=== PATIENT | male | born 1995 | race American Indian/Alaskan Native ===

== ENCOUNTER 2017-02-18 14:23 | Emergency (ER) | payer SELFPAY ==
[2017-02-18 14:35] VITALS: BP 132/79
[2017-02-18] MEDS ORDERED: NACL 0.9% 500 ML IR ONE (15:36)
[2017-02-18] MEDS ORDERED: BOOSTRIX IM ONE (15:53)
[2017-02-18] MEDS ORDERED: XYLOCAINE 2% INFILTRATI ONE (15:54)
--- NOTE | 2017-02-18 15:59 | Emergency Department Report ---
- General Chief Complaint: Wound/Laceration Stated Complaint: LAC BACK RIGHT THIGH Time Seen by Provider: 02/18/17 15:51 Source: patient Mode of arrival: Ambulatory Limitations: No Limitations - History of Present Illness Initial Comments: right thigh laceration x 3 3 cm each versus banding saw blade, minimal bleeding pain , pt remains ambulatory , no numbness no tingling rom intact non restricted. 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 denies: loss of feeling/numbness, suspect foreign body present, unable to move injured part, weakness followed by dizziness, nausea/vomiting, fever - Related Data Previous Rx's Medication Instructions Recorded Last Taken Type Cephalexin [Keflex] 500 mg PO TID #30 capsule 02/18/17 Unknown Rx traMADol [Ultram 50 MG tab] 50 mg PO Q6HR PRN #20 tablet 02/18/17 Unknown Rx Allergies Allergy/AdvReac Type Severity Reaction Status Date / Time No Known Allergies Allergy Verified 02/18/17 15:43 ED Review of Systems ROS: Stated complaint: LAC BACK RIGHT THIGH Other details as noted in HPI Constitutional: denies: chills, fever Eyes: denies: eye pain, eye discharge, vision change ENT: denies: ear pain, throat pain Respiratory: denies: cough, shortness of breath, wheezing Cardiovascular: denies: chest pain, palpitations Endocrine: no symptoms reported Gastrointestinal: denies: abdominal pain, nausea, diarrhea Genitourinary: denies: urgency, dysuria Musculoskeletal: denies: back pain, joint swelling, arthralgia Skin: other (lacerations right post thigh ) Neurological: denies: headache, weakness, paresthesias Psychiatric: denies: anxiety, depression Hematological/Lymphatic: denies: easy bleeding, easy bruising ED Past Medical Hx - Past Medical History Previous Medical History?: No - Surgical History Past Surgical History?: No - Social History Smoking Status: Never Smoker Substance Use Type: None - Medications Home Medications: Home Medications Medication Instructions Recorded Confirmed Last Taken Type Cephalexin [Keflex] 500 mg PO TID #30 capsule 02/18/17 Unknown Rx traMADol [Ultram 50 MG tab] 50 mg PO Q6HR PRN #20 tablet 02/18/17 Unknown Rx ED Physical Exam - General Limitations: No Limitations General appearance: alert, in no apparent distress - Head Head exam: Present: atraumatic, normocephalic - Eye Eye exam: Present: normal appearance - ENT ENT exam: Present: mucous membranes moist - Neck Neck exam: Present: normal inspection - Respiratory Respiratory exam: Present: normal lung sounds bilaterally. Absent: respiratory distress - Cardiovascular Cardiovascular Exam: Present: regular rate, normal rhythm. Absent: systolic murmur, diastolic murmur, rubs, gallop - GI/Abdominal GI/Abdominal exam: Present: soft, normal bowel sounds - Rectal Rectal exam: Present: deferred - Extremities Exam Extremities exam: Present: full ROM, tenderness, normal capillary refill. Absent: pedal edema, joint swelling, calf tenderness - Expanded Lower Extremity Exam Right Hip exam: Present: full ROM Upper Leg exam: Present: full ROM, tenderness, laceration (right posterior thigh x 3 ). Absent: swelling, abrasion, ecchymosis, deformity, crepidus, dislocation, erythema Knee exam: Absent: normal inspection, full ROM Lower Leg exam: Absent: normal inspection, full ROM Ankle exam: Absent: normal inspection, full ROM Foot/Toe exam: Absent: normal inspection, full ROM Neuro vascular tendon exam: Present: no vascular compromise. Absent: pulse deficit, abnormal cap refill, motor deficit, sensory deficit, tendon deficit, extremity cold to touch, pallor, abnormal 2-point discrimination, decreased fine /light touch, foot drop, peroneal nerve deficit, significant pain with passive ROM of distal joint Gait: Positive: observed and normal - Back Exam Back exam: Present: normal inspection, full ROM. Absent: CVA tenderness (R), CVA tenderness (L), muscle spasm, paraspinal tenderness, vertebral tenderness - Neurological Exam Neurological exam: Present: alert, oriented X3, CN II-XII intact, normal gait, reflexes normal - Expanded Neurological Exam Expanded Patient oriented to: Present: person, place, time Speech: Present: fluid speech Cranial nerves: EOM's Intact: Normal, Gag Reflex: Normal, Facial Sensation: Normal Cerebellar function: Finger to Nose: Normal, Heel to Bailey: Normal, Romberg: Normal Upper motor neuron: Cyril Neglect: Normal, Pronator Drift: Normal, Babinski Sign : Normal, Sensory Extinction: Normal Sensory exam: Upper Extremity Light Touch: Normal, Upper Extremity Pin Prick: Normal, Upper Extremity Temperature: Normal, UE 2 Point Discrimination: Normal, Lower Extremity Light Touch: Normal, Lower Extremity Pin Prick: Normal, Lower Extremity Temperature: Normal, LE 2 Point Discrimination: Normal Motor strength exam: RUE: 5, LUE: 5, RLE: 5, LLE: 5 DTR: bicep (R): 2+, bicep (L): 2+, tricep (R): 2+, tricep (L): 2+, knee (R): 2+ , knee (L): 2+, ankle (R): 2+, ankle (L): 2+ Best Eye Response ([place]): (4) open spontaneously Best Motor Response ([place]): (6) obeys commands Best Verbal Response ([place]): (5) oriented [place] Total: 15 - Psychiatric Psychiatric exam: Present: normal affect, normal mood ED Course Vital Signs 02/18/17 14:32 Temperature 98 F Pulse Rate 81 Respiratory 16 Rate Blood Pressure 132/79 O2 Sat by Pulse 100 Oximetry - Laceration /Wound Repair Right Posterior Thigh Wound Location: lower extremity Wound Length (cm): 3 (3 cm x 3) Wound's Depth, Shape: superficial, irregular Wound Explored: contaminated Irrigated w/ Saline (ccs): 750 Betadine Prep?: Yes Anesthesia: 1% Lidocaine Volume Anesthetic (ccs): 5 (total all 3 wounds) Wound Debrided: minimal (irrigated with ns) Suture Size/Type: 3:0, proline, nylon Number of Sutures: 20 (20 total ) Layer Closure?: No Sterile Dressing Applied?: Yes Progress: pt for laceration repair verbal consent obtained wound cleaned with betadine solution anesthesia with 1% lidocaine plain x 5 ml , includes all three wounds, wound irrigated with ns x 750 cc, wound close with 3.0 Nylon suture x 20 bleeding controlled,sterile dressing applied there is no bleeding at this time. pt tolerated procedure with minimal distress pt given wound care instructions pt verbalized understanding and agreement with same. 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 pt verbalized understand and agreement with same. Critical care attestation.: If time is entered above; I have spent that time in minutes in the direct care of this critically ill patient, excluding procedure time. ED Disposition Clinical Impression: Laceration of thigh, right Qualifiers: Encounter type: initial encounter Qualified Code(s): S71.111A - Laceration without foreign body, right thigh, initial encounter Disposition: DC-01 TO HOME OR SELFCARE Is pt being admited?: No Does the pt Need Aspirin: No Condition: Good Instructions: Suture Care (ED) Prescriptions: Cephalexin [Keflex] 500 mg PO TID #30 capsule traMADol [Ultram 50 MG tab] 50 mg PO Q6HR PRN #20 tablet PRN Reason: Pain Referrals: PRIMARY CARE, [Primary Care Provider] - 3-5 Days Forms: Work/School Release Form(ED) Time of Disposition: 17:17
[2017-02-18] MEDS ORDERED: ceFAZolin 2 GM in NACL 0.9% 100 ML IV ONE (16:30)
[2017-02-18] MEDS ORDERED: NACL 0.9% IR ONE (18:08)
== END 2017-02-18 17:27 | disposition home or self-care (01) ==
LOC: ED 14:23
DX: S71.111A Laceration without foreign body, right thigh, initial encounter (principal); X58.XXXA Exposure to other specified factors, initial encounter; Y93.89 Activity, other specified; Y92.89 Other specified places as the place of occurrence of the external cause; Y99.8 Other external cause status
CPT/HCPCS: 12034; 90471; 90715; 96365; 99282; J0690

== ENCOUNTER 2017-02-27 09:49 | Emergency (ER) | payer SELFPAY ==
[2017-02-27 10:39] VITALS: BP 115/77
--- NOTE | 2017-02-27 14:22 | Emergency Department Report ---
Chief Complaint: Medical Clearance Stated Complaint: SUTURES REMOVED Time Seen by Provider: 02/27/17 14:21 - HPI History of Present Illness: Patient presents for suture removal. Patient states that sutures were placed on his right thigh 9 days ago - Exam Vital Signs: Vital Signs 02/27/17 10:34 Temperature 98.1 F Pulse Rate 57 L Respiratory 16 Rate Blood Pressure 115/77 Blood Pressure 115/77 [Left] O2 Sat by Pulse 100 Oximetry Physical Exam: Visible numerous sutures right lateral thigh region MSE screening note: Focused history and physical exam performed. Due to findings the following was ordered: Screening Assessment/Plan/Differential Dx: Visit for suture removal 1- This initial assessment/diagnostic orders/clinical plan/ treatment(s) is/are subject to change based on pt's health status, clinical progression and re- assessment by fellow clinical providers in the ED. Further treatment and workup at subsequent clinical provers discretion. Patient/guardians urged not to elope from ED as their condition may be serious if not clinically assessed and managed. 2-wound does not appear fully healed I advised patient that I may be able to remove some stitches but that he has to return in 2-3 days to have the rest of the stitches removed 3-patient eloped before I could begin any suture removal procedure, as per nurse Farr he said he would return in 2-3 days ED Disposition for MSE Condition: Stable Referrals: PRIMARY CARE, [Primary Care Provider] - 3-5 Days
== END 2017-02-27 14:24 ==
LOC: ED 09:49
DX: Z53.21 Procedure and treatment not carried out due to patient leaving prior to being seen by health care provider (principal)

== ENCOUNTER 2017-03-01 09:35 | Emergency (ER) | payer SELFPAY ==
[2017-03-01 09:40] VITALS: BP 123/70
--- NOTE | 2017-03-01 10:21 | Emergency Department Report ---
Suture/Staple Removal - HPI Chief Complaint: Laceration/Recheck/Suture Stated Complaint: SUTURE REMOVAL Time Seen by Provider: 03/01/17 10:17 When Sutures or Ros Placed: 11-14 Days Ago Wound Location: R thigh ED Review of Systems ROS: Stated complaint: SUTURE REMOVAL Other details as noted in HPI Comment: All other systems reviewed and negative Constitutional: other (TD vaccine is utd ). denies: chills, fever Musculoskeletal: other (Pain near suture site today. pt thinks they have been in too long ) Skin: as per HPI (suture site to R thigh, no drainage. no warmth ) ED Past Medical Hx - Past Medical History Previous Medical History?: No - Social History Smoking Status: Never Smoker - Medications Home Medications: Home Medications Medication Instructions Recorded Confirmed Last Taken Type Cephalexin [Keflex] 500 mg PO TID #30 capsule 02/18/17 Unknown Rx traMADol [Ultram 50 MG tab] 50 mg PO Q6HR PRN #20 tablet 02/18/17 Unknown Rx Suture Removal Exam - Exam General: Vital signs noted. No distress. Alert and acting appropriately. Wound: No Pathologic Erythema, No Tenderness, No Drainage, No Pus, No Wound Dehiscence Other Systems: All other systems reviewed and are unremarkable. ED Course Vital Signs 03/01/17 09:38 Temperature 98.6 F Pulse Rate 67 Respiratory 18 Rate Blood Pressure 123/70 O2 Sat by Pulse 100 Oximetry - Reevaluation(s) Reevaluation #1: 03/01/17 10:19 pt tolerated suture removal well. no immediate complications - Procedure Description Procedures done: 4 running sutures removed from R thigh. - Pulse Oximetry Interpretation Digit-Finger Initial Pulse Oximetry Readin Actions Taken: none ED Recheck MDM - Differential Diagnosis Wound Recheck, Suture/Staple Removal Critical Care Time: No Critical care attestation.: If time is entered above; I have spent that time in minutes in the direct care of this critically ill patient, excluding procedure time. ED Disposition Clinical Impression: Visit for suture removal Disposition: - TO HOME OR SELFCARE Is pt being admited?: No Does the pt Need Aspirin: No Condition: Stable Instructions: Suture Removal (ED) Referrals: PRIMARY CAREMD [Primary Care Provider] - 3-5 Days BALJEET BLACK MD [Staff Physician] - 3-5 Days Time of Disposition: 10:20
== END 2017-03-01 10:33 | disposition home or self-care (01) ==
LOC: ED 09:35
DX: Z48.02 Encounter for removal of sutures (principal)